=== PATIENT | female | born 1955 | race Caucasian/White ===

== ENCOUNTER 2020-03-23 04:40 | Observation (INO) | payer MEDICARE, OTHER ==
[2020-03-23] VITALS (17 sets, daily range): BP systolic 106–143; BP diastolic 55–69
[~2020-03-23] VITALS: Ht 160 cm; Wt 69.2 kg
--- NOTE | 2020-03-23 04:30 | NUR ---
PT ADMITTED TO FROM [facility] WITH UNSTABLE ANGINA. PT A/OX4, DENIES PAIN AT THIS TIME. PT GIVEN ADMISSION PACKET, POC EXPLAINED, ORIENTED TO STAFF, PROCEDURES. CALL LIGHT IN PLACE WILL CONT TO MONITOR PT STATUS AND SAFETY. PMRN
[2020-03-23] MEDS ORDERED: TAMO20TA PO (04:58)
--- NOTE | 2020-03-23 08:05 | PDOC2 ---
CARDIOLOGY CONSULT NOTE DATE OF SERVICE: DATE: 03/23/20 TIME: 08:02 CHIEF COMPLAINT: Chest pain HPI: 64 y.o woman w/o sign medical history presented to OSH with substernal pain not relieved with tums but improved with NTG and morphine. Initial EKG with anterolateral ST changes in the setting of normal BP. Covid negative. Labs otherwise unremarkable. She feels better now, had some more slight pain earlier today. Already given lo venox. PMHX: Prior breast cancer, in remission No HTN, DM2, dyslipidemia SOCHX: No alcohol, tob or illicits. She is and is retired. FAMHX: NC CURRENT MEDS: Lovenox ALLERGIES: Allergies Coded Allergies Type Severity Reaction Last Updated Verified Sulfa (Sulfonamide Antibiotics) Allergy Intermediate rash 03/23/20 Yes ROS: Negative for 02/15 systems reviewed unless noted above in HPI PHYSICAL EXAM: Vital Signs/I&O: Vital Signs Date Time Temp Pulse Resp B/P (MAP) Pulse Ox O2 Delivery O2 Flow Rate FiO2 03/23/20 04:33 98.3 86 16 143/69 (93) 98 Room Air 98.3 I & O 03/22/20 03/22/20 03/23/20 15:00 23:00 07:00 Intake Total 0 ml Output Total 400 ml Balance -400 ml Physical Exam: GEN.: No apparent distress. Alert and oriented. HEENT: Head is normocephalic, atraumatic NECK: Supple. LUNGS: Clear to auscultation. HEART: RRR, S1, S2 present. Peripheral pulses intact ABDOMEN: Soft, nontender. Positive bowel sounds. EXTREMITIES: Without any cyanosis. NEUROLOGIC: Normal speech, normal tone PSYCHIATRIC: Normal affect, normal mood. SKIN: No ulcerations DIAGNOSTIC TESTING: EKG at OSH. Subtle [address] changes Lab Trop negative. ASSESSMENT: 1. Unstable angina with abnormal EKG PLAN: 1. Discussed r/b/a to cardiac cath - given her unstable angina symptoms will proceed with cath. Thanks ELIJAH HALL MD Mar 23, 2020 08:05
[2020-03-23] MEDS ORDERED: LIDOCAINE 1% PF 2 ML VIAL. ONE (08:22)
[2020-03-23] MEDS ORDERED: IODIXANOL 320 MG/ML 100 ML VIAL. ONE (08:22)
--- NOTE | 2020-03-23 09:13 | PDOC ---
MODERATE SEDATION ASSESSMENT RISKS/ALTERNATIVES Risks/Alternatives Risks and alternatives of this type of sedation and procedure discussed with: RISK/ALTERNATIVES: Patient H & P ON CHART H & P H & P on chart and reviewed for co-morbid conditions and appropriate labs. H&P ON CHART: Yes STATUS PREG STATUS ASSESSED: N/A MEDS/ALLERGIES REVIEWED Meds/Allergies Reviewed Medications and Allergies including time and route of recently administered narcotics and sedatives. MEDS/ALLERGIES REVIEWED: Yes ASA RATING ASA RATING: II AIRWAY ASSESSMENT Airway Assessment Airway patency, oral function limitations, presence of caps, crowns, dentures, partials, and ability to extend neck assessed. AIRWAY ASSESSMENT: Yes MALLAMPATI SCORE MALLAMPATI SCORE: II PRE-SEDATION ASSESSMENT PRE-SEDATION ASSESSMENT: Yes ELIJAH HALL MD Mar 23, 2020 09:13
[2020-03-23] MEDS ORDERED: MIDAZOLAM HCL/PF 2 MG/2 ML VIAL. ONE (09:19)
[2020-03-23] MEDS ORDERED: HEPARIN for IV BOLUS 10,000 UNIT/10 ML VIAL. ONE (09:19)
[2020-03-23] MEDS ORDERED: VERAPAMIL 5 MG/2 ML VIAL. ONE (09:19)
[2020-03-23] MEDS ORDERED: fentaNYL PF VIAL 100 MCG/2 ML VIAL ONE (09:19)
[2020-03-23] MEDS ORDERED: NITROGLYCERIN 200 MCG/2 ML SYRINGE FOR CATH/VASC LAB. ONE (09:19)
[2020-03-23] MEDS ORDERED: IV NORMAL SALINE 1000ML BAG 1,000 ML IV ONE (09:42)
[2020-03-23] MEDS ORDERED: LIDOCAINE 1% PF 2 ML VIAL. INJ ONE (10:00)
[2020-03-23] MEDS ORDERED: NITROGLYCERIN 200 MCG/2 ML SYRINGE FOR CATH/VASC LAB. ICAR ONE (10:00)
[2020-03-23] MEDS ORDERED: MIDAZOLAM HCL/PF 2 MG/2 ML VIAL. IV ONE (10:00)
[2020-03-23] MEDS ORDERED: IODIXANOL 320 MG/ML 100 ML VIAL. IART ONE (10:00)
[2020-03-23] MEDS ORDERED: HEPARIN for IV BOLUS 10,000 UNIT/10 ML VIAL. IART ONE (10:00)
[2020-03-23] MEDS ORDERED: fentaNYL PF VIAL 100 MCG/2 ML VIAL IV ONE (10:00)
[2020-03-23] MEDS ORDERED: NITROGLYCERIN 200 MCG/2 ML SYRINGE FOR CATH/VASC LAB. IART ONE (10:00)
[2020-03-23] MEDS ORDERED: VERAPAMIL 5 MG/2 ML VIAL. IART ONE (10:00)
--- NOTE | 2020-03-23 11:36 | SSS ---
ADMIT DATE: 03/23/2020 CHIEF COMPLAINT: Chest pain. HISTORY OF PRESENT ILLNESS: The patient is a pleasant middle-aged female, who presented to [facility]. She was complaining of some chest pain. She had some EKG changes. Her pain was relieved with nitro. She rated it 9/10 and woke up in the middle of the night. I discussed the case with ER physician at their facility. We now transferred the patient to our facility for cardiac cath. It turns out she did go for cardiac cath this morning already and apparently it did not show any severe disease. The patient has been observed overnight. PAST MEDICAL HISTORY: Breast cancer, hypertension, diabetes, hyperlipidemia. ALLERGIES: None. FAMILY HISTORY: Diabetes. SOCIAL HISTORY: She does not drink, smoke or take drugs. She is , retired, used to work at [employer]. MEDICATIONS: Reviewed, please refer to the MRAD. REVIEW OF SYSTEMS: GENERAL: No history of weight change, weakness or fevers. SKIN: No bruising, hair changes or rashes. EYES: No blurred, double or loss of vision. NOSE AND THROAT: No history of nosebleeds, hoarseness or sore throat. HEART: No history of palpitations, chest pain or shortness of breath on exertion. LUNGS: Denies cough, hemoptysis, wheezing or shortness of breath. GASTROINTESTINAL: Denies changes in appetite, nausea, vomiting, diarrhea or constipation. GENITOURINARY: No history of frequency, urgency, hesitancy or nocturia. NEUROLOGIC: Denies history of numbness, tingling, tremor or weakness. PSYCHIATRIC: No history of panic, anxiety or depression. ENDOCRINE: No history of heat or cold intolerance, polyuria or polydipsia. EXTREMITIES: Denies muscle weakness, joint pain, pain on walking or stiffness. PHYSICAL EXAMINATION: VITALS: Within normal limits and are stable. GENERAL: No apparent distress. Alert and oriented. HEENT: Normocephalic atraumatic, external auditory canals are patent. EYES: Extraocular muscles are intact, pupils are equally round and reactive to light and accommodation. MUSCULOSKELETAL: Well developed, well nourished, good range of motion. ENDOCRINE: No thyromegaly was palpated. LYMPHATICS: No cervical chain or axillary nodes were noted. HEMATOPOIETIC: No bruising. NECK: Supple, no JVD, no thyromegaly was noted. LUNGS: Clear to auscultation in all lung [place] without rhonchi or wheezing. HEART: RRR, S1, S2 present. Peripheral pulses intact, no obvious murmurs were noted. ABDOMEN: Soft, nontender. Positive bowel sounds no organomegaly, normal bowel sounds. EXTREMITIES: Without any cyanosis, clubbing, or edema. Pedal pulses intact, Homans sign is negative. The right wrist has a splint on after her cardiac cath. NEUROLOGIC: Normal speech, normal tone. A & O x 3, moves all extremities, no obvious focal deficits. PSYCHIATRIC: Normal affect, normal mood. Stable. SKIN: No ulcerations or rashes, good skin turgor, no jaundice. VASCULAR: Good capillary refill, neurovascular bundle appears to be intact. LABORATORY DATA: Troponin is 0. ASSESSMENT AND PLAN: Atypical chest pain. As previously stated, she went for cardiac cath, it is negative. Suspect she could have perhaps an esophageal spasm or gallstones. We will check an abdominal ultrasound. Home meds, DVT prophylaxis. Full code. We hope to discharge in the morning. I suspect I will set her up to see GI for an outpatient evaluation. ANI MCGREGOR DO DR: AFIA/alex JOB#: [id number] / [id number]
--- NOTE | 2020-03-23 12:08 | NUR ---
SS following for discharge planning. SS reviewed pt chart and discussed with pt RN. Pt is from home with spouse and is currently on room air. Pt having heart cath today. PT/OT ordered. SS will continue to follow for discharge planning.
--- NOTE | 2020-03-23 12:27 | CARD ---
MR#: [id number] Date of Study: 03/23/2020 Ordering Physician: ELIJAH CROW, Referring Physician: ELIJAH CROW, Tech: Taylor Cruz APPROVED REPORT Technologist: Taylor Cruz Nurse: Demetria Knutson R.N. Procedure(s) performed: fl time: 2.8 mins dose: 35 gycm2 contrast: 64 ml moderate sedation: 24 MINS LHC, Coronary angiography, Left ventriculography HISTORY : The patient is a 64 year-old female with a history of . INDICATION The indication(s) include : unstable angina . CSHA Clinical Frailty Scale CSHA Clinical Frailty Scale: Managing Well Heart Failure Heart Failure: No PROCEDURE NARRATIVE Clinical information: 64 y.o presents to the hospital with severe crushing chest pain suggestive of unstable angina and EKg changes. Informed consent: Written informed consent was obtained from the patient after adequate discussion of the risks and maritza efits of the procedure. Procedure details: ACCESS: The right wrist was prepped and draped in usual sterile fashion. Under 1% lidocaine local anesthesia a 6 Sudanese Terumo sheath was placed in the right radial artery via the Seldinger technique. DIAGNOSTIC ANGIOGRAPHY: Right and left coronary arteries were engaged with a 6 Sudanese TIG catheter. Diagnostic angiography i n multiple views were obtained. Next, a 6 Sudanese pigtail catheter was placed in the left ventricle a nd a LVEDP was measured. A pullback was performed after left ventriculography. All catheters were e xchanged over J-tip guidewire. FINDINGS: ======= Aorta: 110/80 LVEDP: 15 mmHg Left ventriculogram: Ejection fraction 55% Normal wall motion without any evidence of aortic or mitral insufficiency. Coronary angiography: LM: Large caliber vessel with normal angiographic appearance LAD: Large caliber vessel proximally with severe tapering in the mid to distal segment. Although no c lear evidence of SCAD is noted, overall appearance suggestive of spasm versus mild SCAD. D1: Small caliber vessel with normal angiographic appearance LCX: Moderate caliber non-dominant vessel with normal angiographic appearance. OM1: Moderate caliber vessel with normal angiographic appearance RCA: Large caliber dominant vessel with mild luminal irregularities RPDA: Moderate caliber vessel with mild luminal irregularities. CLOSURE: At case completion the right radial sheath was removed and a Terumo radial band was applied with 10 m L of air. Hemostasis was achieved. COMPLICATIONS: No acute complications noted Conclusion 1. Normal left sided filling pressures. 2. Normal LV systolic function and wall motion. EF 55% 3. No significant obstructive coronary disease, mid to distal LAD tapering suggestive of spasm versus mild SCAD. Recommendations Aggressive Medical Therapy Signed by : Elijah Crow, Electronically Approved : 03/23/2020 12:26:37
[2020-03-23 12:44] LABS: ALBUMIN 3.4 g/dL (3.4-5.0); ALBUMIN/GLOBULIN RATIO 1.1 (1.0-1.7); CALCIUM 9.3 mg/dL (8.5-10.1); GFR 55.6; TOTAL BILIRUBIN 0.8 mg/dL (0.2-1.0); TOTAL PROTEIN 6.6 g/dL (6.4-8.2)
[2020-03-23] MEDS ORDERED: ACETAMINOPHEN 325 MG TABLET. PO PRN (14:30)
[2020-03-23] MEDS ORDERED: TAMOXIFEN 10 MG TABLET PO SCH (21:00)
[2020-03-24 02:55] VITALS: BP 122/68
[2020-03-24 05:19] LABS: BASO # 0.1 x10^3/uL (0.0-0.2); BASO % 1 % (0-3); EOS # 0.1 x10^3/uL (0.0-0.7); EOS % 3 % (0-3); HEMATOCRIT 36.2 % (36.0-47.0); HEMOGLOBIN 12.3 g/dL (12.0-15.5); LYMPH # 1.5 x10^3/uL (1.0-4.8); LYMPH % 36 % (24-48); MEAN CORPUSCULAR HEMOGLOBIN 32 pg (25-35); MEAN CORPUSCULAR HGB CONC 34 g/dL (31-37); MEAN CORPUSCULAR VOLUME 93 fL (79-100); MONO # 0.4 x10^3/uL (0.0-1.1); MONO % 8 % (0-9); NEUT # 2.3 x10^3/uL (1.8-7.7); NEUT % 52 % (31-73); PLATELET COUNT 149 x10^3/uL (140-400); RED BLOOD COUNT 3.89 x10^6/uL (3.50-5.40); RED CELL DISTRIBUTION WIDTH 13.1 % (11.5-14.5); WHITE BLOOD COUNT 4.3 x10^3/uL (4.0-11.0)
[2020-03-24 06:37] VITALS: BP 122/60
--- NOTE | 2020-03-24 06:50 | RAD ---
Clinical History: Chest pain and clinical certain for acute cholecystitis Technique: Sonographic examination of the right upper quadrant of the abdomen was performed and multiple static images were obtained. Comparison: none Findings: Liver: The majority of the liver is visualized and appears homogeneous. Common bile duct: Appears normal and measures 3 mm in diameter. Gallbladder: The gallbladder is fairly distended. There is multiple shadowing mobile stones. There is no wall thickening or surrounding fluid or tenderness. Pancreas: is not well visualized due to overlying bowel gas but appears within normal limits. Right kidney: appears normal and measures 11 cm in length. Main Portal Vein: Normal hepatopedal flow Aorta: normal IVC: normal Impression: Cholelithiasis without evidence of acute cholecystitis. Clinical correlation is suggested. Electronically signed by: Nate Granados III, MD (03/24/2020 6:47 AM) [facility]
[2020-03-24 08:38] LABS: CHOLESTEROL/HDL RATIO 2.8
--- NOTE | 2020-03-24 09:54 | DISCH ---
DISCHARGE INSTRUCTIONS Condition on Discharge Condition on Discharge: Stable Activity After Discharge Activity Instructions for Disc: Activity as tolerated Driving Instructions after Dis: Do not drive today Diet after Discharge Diet after Discharge: Low Fat Checks after Discharge DC Comment: CBC, CMP within 2 weeks of discharge Follow-Up Follow up with: PCP within 2 weeks of discharge Follow Up With: Surgery or gastroenterology for your gallstones CHELSEA CRAIG MD Mar 24, 2020 09:54
[2020-03-24] MEDS ORDERED: ASPI-630 PO (10:29)
[2020-03-24 10:48] VITALS: BP 123/59
--- NOTE | 2020-03-24 11:49 | NUR ---
Discharge Note: HARIS GUERRERO ABIQUIU Discharge instructions and discharge home medications reviewed with Patient and a copy given. All questions have been answered and understanding verbalized. The following instructions and handouts were given: medications, follow up and s/p cath instructions Discontinued lines and drains: peripheral Iv discontinued, dressing, clean dry and intact. Patient discharged to home with spouse via ambulation
--- NOTE | 2020-03-24 12:46 | PDOC ---
JASPREET SANTORO BUSINESS STRATEGY MANAGER 03/24/20 1246: CARDIO Progress Notes Date and Time Date of Service 03/24/2020 Time of Evaluation 1010 Subjective Subjective: No Chest Pain, No shortness of breath, No Palpitations Vitals Vitals Vital Signs Date Time Temp Pulse Resp B/P (MAP) Pulse Ox O2 Delivery O2 Flow Rate FiO2 03/24/20 10:48 97.9 76 19 123/59 (80) 98 Room Air 97.9 03/23/20 10:03 2.0 Weight Weight [ ] Input and Output Intake and Output Intake and Output 03/24/20 07:00 Intake Total 600 ml Output Total 2100 ml Balance -1500 ml Intake Oral 600 ml Output Urine Total 2100 ml Laboratory Labs Laboratory Tests Test 03/24/20 05:00 White Blood Count 4.3 x10^3/uL (4.0-11.0) Red Blood Count 3.89 x10^6/uL (3.50-5.40) Hemoglobin 12.3 g/dL (12.0-15.5) Hematocrit 36.2 % (36.0-47.0) Mean Corpuscular Volume 93 fL (79-100) Mean Corpuscular Hemoglobin 32 pg (25-35) Mean Corpuscular Hemoglobin Concent 34 g/dL (31-37) Red Cell Distribution Width 13.1 % (11.5-14.5) Platelet Count 149 x10^3/uL (140-400) Neutrophils (%) (Auto) 52 % (31-73) Lymphocytes (%) (Auto) 36 % (24-48) Monocytes (%) (Auto) 8 % (0-9) Eosinophils (%) (Auto) 3 % (0-3) Basophils (%) (Auto) 1 % (0-3) Neutrophils # (Auto) 2.3 x10^3/uL (1.8-7.7) Lymphocytes # (Auto) 1.5 x10^3/uL (1.0-4.8) Monocytes # (Auto) 0.4 x10^3/uL (0.0-1.1) Eosinophils # (Auto) 0.1 x10^3/uL (0.0-0.7) Basophils # (Auto) 0.1 x10^3/uL (0.0-0.2) Triglycerides Level 74 mg/dL (0-150) Cholesterol Level 170 mg/dL (0-200) LDL Cholesterol, Calculated 94 mg/dL (0-100) VLDL Cholesterol, Calculated 15 mg/dL (0-40) Non-HDL Cholesterol Calculated 109 mg/dL (0-129) HDL Cholesterol 61 mg/dL (40-60) Cholesterol/HDL Ratio 2.8 Physical Exam HEENT: Neck Supple W Full Motion Chest: Symmetric LUNGS: Clear to Auscultation Heart: S1S2, RRR (SR) Abdomen: Soft N/T Extremities: No Calf Tenderness Neurology: alert, oriented, follow commands Other Exams Right wrsit arteriotomy site intact, no swelling, neurovascular status to right hand intact. Assessment Assessment Chest pain: UA features with subtle EKG changes. LHC revealed no significant C AD. Possible vasiopasm no further recurrence. Mild transamintis: per PCP Cholelithiasis: incidental finding Recommendations 1. Continue home ASA. None further cardiac kennedy. Lipids are good. EF and LV pressures are normal. Justicifation of Admission Dx: Justifications for Admission: Justification of Admission Dx: Yes ELIJAH HALL MD 03/24/20 1725: CARDIO Progress Notes Plan Plan Pt. seen and examined. Agree with above MINES SAFETY ENGINEER note. Supportive care. JASPREET SANTORO APRN Mar 24, 2020 12:46 ELIJAH HALL MD Mar 24, 2020 17:25
--- NOTE | 2020-03-24 21:40 | PDOC3 ---
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 She was complaining of some chest pain. She had some EKG changes. Her pain was relieved with nitro. She rated it 9/10 and woke up in the middle of the night. I discussed the case with ER physician at their facility. We now transferred the patient to our facility for cardiac cath. It turns out she did go for cardiac cath this morning already and apparently it did not show any severe disease. The patient has been observed overnight. LHC was completed and it was negative for any disease. Patient will be DC'd wi th ASA 81 per cardiology. Suspicious for GI etiology for chest pain was considered and and ABD US was ordered which showed cholelithiasis. Patient will proceed with outpatient managemnt with GI vs surgery upon discharge. Patient was chest pain free at time of discharge. Rest of her hospital course was uneventful. Disposition: Disposition/Orders: D/C to Home Activity: Activity: Resume previous activity Diet: Diet: Regular Medications: Home Meds Active Scripts Aspirin (ASPIRIN) 81 Mg Tab.chew, 81 MG PO DAILY for primary prevention of CAD for 30 Days, #30 TAB.CHEW Prov:CHELSEA CRAIG MD 03/24/20 Reported Medications Tamoxifen Citrate (TAMOXIFEN CITRATE) 20 Mg Tablet, 20 MG PO HS for breast CA, TAB Tamoxifen (Nolvadex) 03/23/20 Scheduled Aspirin (Aspirin), 81 MG PO DAILY Tamoxifen Citrate (Tamoxifen Citrate), 20 MG PO HS, (Reported) Total Time: Total Time: Total time spent was 20 minutes in preparing scripts, discharge planning with SW and RN, and preparing this discharge summary. Patient seen and examined on day of discharge. Justicifation of Admission Dx: Justifications for Admission: Justification of Admission Dx: Yes CHELSEA CRAIG MD Mar 24, 2020 21:40
--- NOTE | 2020-04-17 10:05 | NUR ---
NaCl started at 09:42 on 03/23-stop time of 10:45 on 03/23
== END 2020-03-24 11:45 | disposition home or self-care (01) ==
LOC: 2 NORTH 04:40 → INTOOBSV 04:40
PROVIDERS: ADMIT Internal Medicine; ATTEND Internal Medicine
DX: I20.0 Unstable angina (principal); K80.20 Calculus of gallbladder without cholecystitis without obstruction; I10 Essential (primary) hypertension; E11.9 Type 2 diabetes mellitus without complications; E78.5 Hyperlipidemia, unspecified; R94.31 Abnormal electrocardiogram [ECG] [EKG]; Z85.3 Personal history of malignant neoplasm of breast; Z79.82 Long term (current) use of aspirin
CPT/HCPCS: 36415; 76705; 80053; 80061; 83735; 84484; 85025; 93458; 96361; 96374; 96375; 99152; 99153; C1769; C1892; G0378; G0379; J1644; J2250; J3010; J3490; J7030; Q9967